=== PATIENT | female | born 1965 | race Caucasian/White ===

== ENCOUNTER → 2016-12-06 | Outpatient (CLI) | payer SELFPAY ==
[2012-08-02 11:57] VITALS: BP 140/96
--- NOTE | 2016-12-06 22:49 | CT ---
CT Calcium Score Clinical information: 51-year-old female for coronary artery disease risk assessment. Comparison: None. ECG Gating: Prospective Scan range: Pulmonary artery bifurcation to diaphragm. Findings: Examination quality: Excellent. Limitation: None. Total calcium score: 1 Total volume score: 3 mm3 Percentile: 50-75 % Artery scores Left main coronary artery: 2 Left anterior descending artery: 0 Left circumflex artery: 0 Right coronary artery: 1 Other findings: Cardiac chambers: Unremarkable. Cardiac valves: Unremarkable. Thoracic aorta: Unremarkable. Lungs: Unremarkable. Upper abdomen: Unremarkable. Impression: Minimal identifiable plaque with a very unlikely, less than 10%, risk of coronary artery disease and coronary event within the next 5 years. Reported By:
== END ==
LOC: RAD 14:55
PROVIDERS: ATTEND Nurse Practitioner Family
DX: Z13.6 Encounter for screening for cardiovascular disorders (principal)